=== PATIENT | male | born 2000 | race Hispanic/Latino ===

== ENCOUNTER 2024-02-08 22:13 | Emergency (ER) | payer SELFPAY ==
--- NOTE | ~2024-02-08 | CT_ITS ---
EXAMINATION: CT abdomen pelvis w con DATE: 02/09/2024 02:56 INDICATION: Epigastric pain TECHNIQUE: Computed tomography (CT) of the abdomen and pelvis was performed with 100 cc Omnipaque 350 intravenous contrast. The dose-length product was 547.14 mGy-cm. Automated exposure control and iter ative reconstruction technique were employed. COMPARISON: None. FINDINGS: Lung bases are unremarkable. Heart size normal. No significant pleural or pericardial effus ion. No significant vascular abnormality. No lymphadenopathy. Fatty infiltration of the liver. Gallbl adder is present. The spleen, pancreas, adrenal glands and kidneys are normal. Nonobstructive bowel p attern. No free air or free fluid. No abnormal pelvic masses. No evidence for hernia. IMPRESSION: 1. No acute abdominal abnormality. Reviewed, dictated and finalized at location A.
--- NOTE | ~2024-02-08 | XR_ITS ---
XR chest 2V 02/09/2024 02:14 Indication: Fever Procedure: PA and lateral views of the chest Comparison: No prior studies for comparison. Findings: Heart size normal. No focal air space disease, pulmonary edema, pleural effusion or suspect ed pneumothorax. Impression: 1: No acute cardiopulmonary disease. Reviewed, dictated and finalized at location A. Impression: 1: No acute cardiopulmonary disease.
[2024-02-08 22:15] VITALS: BP 115/46; PULSE 57; RESP 24; TEMP 38.4; O2SAT 96
[2024-02-08 22:33] VITALS: BP 101/53; PULSE 110; RESP 20; TEMP 37.8; O2SAT 99
--- NOTE | 2024-02-08 22:33 | PC.NURSE ---
Patients SO comes to desk to state I think he passed out. Patient pulled into triage bay, repeat VS taken. 100.1temp, 20RR, 99% on RA, 101/53bp. Patient awake and talking, easily arousable. Patients SO states he did say he drank some alcohol today, he didn't say how much. Patient denies using marijuana. ERP notified.
--- NOTE | 2024-02-08 22:38 | ECG_ITS ---
Measurements Intervals [place] Rate: 110 P: 61 WA: 129 QRS: 41 QRSD: 79 T: 37 QT: 302 QTc: 409 Interpretive Statements SINUS TACHYCARDIA ST ELEVATION IN ANT/HIGH LAT LEADS- PROBABLY EARLY REPOLARIZATION ABNORMALITY ABNORMAL ECG NO PREVIOUS ECG AVAILABLE FOR COMPARISON Electronically Signed On 02-09-2024 7:41:47 CDT by Yassine Jones D.O.
[2024-02-08 22:55] LABS: Basophils Absolute Auto 0.1 K/mm3 (0.0-0.1); Basophils Percent Auto 0.4 % (0.2-1.2); Eosinophils Percent Auto 0.1 % (0-4.4); Hematocrit 44.8 % (42.0-52.0); Immature Granulocyte Percent A 0.5 % (0-0.5); Lymphocytes Percent Auto 14.8 % (18.3-44.2); Mean Corpuscular HGB Conc 35.7 g/dl (32-36); Mean Corpuscular Hemoglobin 30.9 pg (26-34); Mean Corpuscular Volume 86.5 fl (80-100); Mean Platelet Volume 11.2 fl (7.4-10.4); Monocytes Absolute Auto 1.4 K/mm3 (0.1-0.6); Monocytes Percent Auto 6.7 % (2.6-8.5); Neutrophils Absolute Auto 15.7 K/mm3 (1.3-6.7); Neutrophils Percent Auto 77.5 % (45.5-73.1); Platelet Count Result 245 k/mm3 (150-375); Red Blood Count 5.18 M/mm3 (4.6-6.20); Red Cell Distribution Width 12.1 % (11.5-14.5); White Blood Count 20.3 K/mm3 (4.5-10.0)
[2024-02-08 23:18] LABS: Influenza A QL RT-PCR Negative (Negative); Influenza B QL RT-PCR Negative (Negative); RSV RNA, RT-PCR Negative (Negative); SARS-CoV-2 RNA PCR Negative (Negative)
[2024-02-08 23:21] LABS: Alanine Aminotransferase 47 U/L (6-50); Albumin Level 4.9 g/dL (3.5-5.1); Alkaline Phosphatase 92 U/L (38-126); Anion Gap 14 mmol/L (8-16); Aspartate Amino Transferase 44 U/L (17-59); Bilirubin,Total 0.9 mg/dL (0.2-1.3); Blood Urea Nitrogen 15 mg/dL (9-20); Calcium 10.4 mg/dL (8.4-10.2); Carbon Dioxide 19 mmol/L (22-30); Chloride 105 mmol/L (98-107); Estimated CRCL calculation 112 ml/min; Estimated Glomerular Filt Rate > 60; Glucose 112 mg/dL (65-110); Lipase 101 U/L (23-300); Potassium 4.6 mmol/L (3.4-5.0); Sodium 138 mmol/L (137-145)
[2024-02-08 23:29] LABS: Bacteria Urine None Seen /hpf; Hyaline Casts Urine Present /lpf; Mucus Urine Present /lpf; Need Manual Microscopic Reviewed; RBC Urine 0-2 /hpf (0-2); Squamous Epithelial Cell Urine None Seen /hpf (Few); WBC Urine 0-5 /hpf (0-3)
[2024-02-08 23:33] LABS: Troponin I < 0.012 ng/mL (0.000-0.034)
[2024-02-08 23:34] LABS: Appearance Urine Clear (Clear); Blood Urine Trace-Lysed (Negative); Color Urine Yellow (Yellow); Glucose Urine UA Negative (Negative); Ketones Urine 1+ mg/dL (Negative); Nitrate Urine Negative (Negative); Protein Urine 1+ mg/dL (Negative)
[2024-02-08 23:35] LABS: Add Urine Microscopic? YES; Bilirubin Urine 1+ (Negative); Leukocyte Esterase Ur Negative LEU/UL (Negative)
[2024-02-08 23:51] VITALS: PULSE 106; RESP 31; O2SAT 100
[2024-02-09] VITALS (24 sets, daily range): BP systolic 113–135; BP diastolic 46–66; PULSE 78–114; RESP 23–43; TEMP 36.8; O2SAT 96–100
[2024-02-09] MEDS: SODIUM CHLORIDE 0.9% IV 1,000 ML 999 ML IV CONT (02:36)
[2024-02-09] MEDS: ACETAMINOPHEN 500 MG TABLET 1000 MG PO (02:37)
--- NOTE | 2024-02-09 02:47 | ED.GENADULT ---
HPI - General Adult General Chief complaint: Unspecified Stated complaint: cant feel arms Time Seen by Provider: 02/09/24 01:43 History of Present Illness HPI narrative: This is a 24-year-old male, no significant past medical history, who presents to the emergency department complaining of fever and epigastric abdominal pain for the past 2 days. The patient denies any known sick contacts or recent travel. He complains of nausea but denies vomiting. He denies cough, rash or burning with urination. He also complains of mild lightheadedness. Related Data Allergies Allergy/AdvReac Type Severity Reaction Status Date / Time No Known Allergies Allergy Verified 02/08/24 22:20 Review of Systems Review of Systems: CONSTITUTIONAL: Denies fever, chills, or sweats. CARDIOVASCULAR: Denies chest pain, palpitations, or edema. RESPIRATORY: Denies cough or dyspnea. GASTROINTESTINAL: Epigastric abdominal pain, nausea Denies vomiting, or diarrhea. GENITOURINARY: Denies dysuria or hematuria. SKIN: Denies rash or itching. MUSCULOSKELETAL: Denies back pain, joint pain, or myalgia. NEUROLOGIC: Denies headache, numbness, dizziness, or weakness. PSYCHIATRIC: Denies anxiety or depression. PMFSH Past Medical History Medical History (Updated 02/09/24 @ 07:18 by Sreedhar Bland MD) No significant past medical history Surgical History Surgical History (Updated 02/09/24 @ 07:18 by Sreedhar Bland MD) No significant past surgical history Social History Social History (Updated 02/09/24 @ 07:18 by Sreedhar Bland MD) Smoking status: Never smoker Alcohol intake: never Substance use: never Exam Narrative: GENERAL: Well-developed, well-nourished, and in no acute distress. HEAD: Normocephalic, atraumatic. EYES: PERRLA and EOMI. CHEST: Clear to auscultation. No respiratory distress. No wheezes rales or rhonchi HEART: Regular rate and rhythm. No murmur heard. Normal peripheral pulses. ABDOMEN: Soft, mildly tender to palpation in the epigastrium without rebound or guarding, nondistended, normal active bowel sounds. EXTREMITIES: Normal range of motion. No edema. SKIN: Warm, dry, no rash. NEURO: Alert and oriented x3. No focal deficit. Moving all 4 limbs spontaneously PSYCH: Normal mood and affect. Course Course Emergency Course: 06:18 - CBC demonstrates an elevated white blood cell count of 20 but is otherwise unremarkable. Chemistries demonstrate mild hypercalcemia at 10.4 but is otherwise unremarkable. Troponin negative. UA demonstrates trace hematuria but is otherwise not concerning for urinary tract infection. The patient tested negative for influenza COVID. Chest x-ray not concerning for pneumonia. CT abdomen pelvis not concerning for acute intra-abdominal process. I suspect the patient's symptoms may related to viral infection. He felt improved after Tylenol and IV fluids. Will discharge. I discussed the findings and recommendations with the patient. Discussed return and emergency precautions including signs/symptoms of acute abdomen. The patient voiced understanding and agreement with the plan. All questions answered to his satisfaction. Vital Signs Vital signs: Vital Signs Temperature 101.2 F H 02/08/24 22:15 Pulse Rate 57 L 02/08/24 22:15 Respiratory Rate 24 H 02/08/24 22:15 Blood Pressure 115/46 L 02/08/24 22:15 Pulse Oximetry 96 02/08/24 22:15 Oxygen Delivery Room Air 02/08/24 22:15 Temperature 98.2 F 02/09/24 04:05 Pulse Rate 78 02/09/24 05:30 Respiratory Rate 23 H 02/09/24 05:30 Blood Pressure 117/66 02/09/24 02:34 Pulse Oximetry 98 02/09/24 05:30 Oxygen Delivery Room Air 02/08/24 22:15 Medical Decision Making MDM Narrative Medical decision making narrative: Plan: Labs, imaging, pain control, IV fluids, reassess Differential Diagnosis Differential Diagnosis: Pneumonia, COVID, influenza, pancreatitis, diverticulitis, gastroenteritis appendiciti
== END 2024-02-09 06:45 | disposition home or self-care (01) ==
PROVIDERS: Physician Assistant; Emergency Provider Preventive Medicine Aerospace Medicine
DX: R50.9 Fever, unspecified (principal); K52.9 Noninfective gastroenteritis and colitis, unspecified; Z20.822 Contact with and (suspected) exposure to COVID-19; R00.0 Tachycardia, unspecified; R94.31 Abnormal electrocardiogram [ECG] [EKG]
CPT/HCPCS: 36415; 71046; 74177; 80053; 81001; 83690; 84484; 85025; 87637; 93005; 96360; 99284; A9270; J7030; Q9967